=== PATIENT | male | born 1955 | race Caucasian/White ===

== ENCOUNTER 2016-10-25 11:09 | Inpatient (IN) | payer OTHER ==
[2016-10-25 15:07] VITALS: BMI 31.3
--- NOTE | 2016-10-25 17:12 | HP ---
CIWA Score - CIWA Score Nausea/Vomitin-No Nausea/No Vomiting Muscle Tremors: 4-Moderate,w/Arms Extend Anxiety: 3 Agitation: 4-Moderately Restless Paroxysmal Sweats: 3 Orientation: 0-Oriented Tacttile Disturbances: 0-None Auditory Disturbances: 0-None Visual Disturbances: 0-None Headache: 2-Mild CIWA-Ar Total Score: 16 Admission ROS BHS - HPI Chief Complaint: I am here to detox. Allergies/Adverse Reactions: Allergies Allergy/AdvReac Type Severity Reaction Status Date / Time Penicillins Allergy Severe Hives Verified 10/25/16 15:44 History of Present Illness: pt is a 61yr old male with a history of alcohol dependence seeking detox for treatment Exam Limitations: No Limitations - Ebola screening Have you traveled outside of the country in the last 21 days: No Have you had contact with anyone from an Ebola affected area: No Have you been sick,other than usual withdrawal symptoms: No Do you have a fever: No - Review of Systems Constitutional: Chills, Diaphoresis, Loss of Appetite, Night Sweats, Changes in sleep EENT: reports: Tearing Respiratory: reports: No Symptoms reported Cardiac: reports: Syncope GI: reports: Nausea, Poor Appetite, Poor Fluid Intake : reports: No Symptoms Reported Musculoskeletal: reports: Back Pain, Joint Pain Integumentary: reports: Flushing, Sweating Neuro: reports: Headache, Tingling, Tremors Endocrine: reports: Excessive Sweating, Flushing, Intolerance to Cold, Intolerance to Heat Hematology: reports: No Symptoms Reported Psychiatric: reports: No Sypmtoms Reported, Judgement Intact, Orientated x3, Agitated, Anxious Other Systems: Reviewed and Negative Patient History - Patient Medical History Hx Anemia: No Hx Asthma: No Hx Chronic Obstructive Pulmonary Disease (COPD): No Hx Cancer: Yes (ca of prostate,RADIATION [place]. DID NOT COMPLETE) Hx Cardiac Disorders: No Hx Congestive Heart Failure: No Hx Hypertension: Yes Hx Hypercholesterolemia: No Hx Pacemaker: No HX Cerebrovascular Accident: No Hx Seizures: No Hx Dementia: No Hx Diabetes: No Hx Gastrointestinal Disorders: No Hx Liver Disease: No Hx Genitourinary Disorders: No Hx Sexually Transmitted Disorders: No Hx Renal Disease (ESRD): No Hx Thyroid Disease: No Hx Human Immunodeficiency Virus (HIV): No (negative) Hx Hepatitis C: No Hx Depression: No Hx Suicide Attempt: No Hx Bipolar Disorder: No Hx Schizophrenia: No Other Medical History: liver cirrohosis - Patient Surgical History Past Surgical History: No Hx Neurologic Surgery: No Hx Cataract Extraction: No Hx Cardiac Surgery: No Hx Lung Surgery: No Hx Breast Surgery: No Hx Breast Biopsy: No Hx Abdominal Surgery: No Hx Appendectomy: No Hx Cholecystectomy: No Hx Genitourinary Surgery: No Hx Section: No Hx Orthopedic Surgery: No Anesthesia Reaction: No - PPD History Previous Implant?: Yes Documented Results: Positive w/o proof PPD to be Administered?: No - Reproductive History Patient is a Female of Child Bearing Age (11 -55 yrs old): No - Smoking Cessation Smoking history: Former smoker Have you smoked in the past 12 months: No Aproximately how many cigarettes per day: 5 If you are a former smoker, when did you quit?: at age 21 Cigars Per Day: 0 Hx Chewing Tobacco Use: No Initiated information on smoking cessation: No - Substance & Tx. History Hx Alcohol Use: Yes Substance Use Type: Alcohol - Substances Abused Alcohol-beer Route: Oral Frequency: Daily Amount used: 1 case Age of first use: 13 Date of Last Use: 10/25/16 Family Disease History - Family Disease History Family Disease History: Other: Father (alcohol,) Admission Physical Exam BHS - Vital Signs Vital Signs: Vital Signs - 24 hr 10/25/16 15:05 Temperature 95.9 F L Pulse Rate 79 Respiratory 20 Rate Blood Pressure 156/91 - Physical General Appearance: Yes: Appropriately Dressed, Moderate Distress, Obese, Tremorous, Irritable, Sweating, Anxious HEENTM: Yes: Hearing grossly Normal, Normal Voice, Nasal Congestion Respiratory: Yes: Lungs Clear, Normal Breath Sounds, No Respiratory Distress Neck: Yes: No masses,lesions,Nodules Breast: Yes: Within Normal Limits Cardiology: Yes: Regular Rhythm, Regular Rate, S1, S2 Abdominal: Yes: Normal Bowel Sounds, Non Tender, Soft Genitourinary: Yes: Within Normal Limits Back: Yes: Normal Inspection Musculoskeletal: Yes: full range of Motion, Back pain Extremities: Yes: Normal Capillary Refill, Normal Inspection, Non-Tender, Tremors Neurological: Yes: Fully Oriented, Alert, Normal Response Integumentary: Yes: Normal Color, Diaphoresis Lymphatic: Yes: Within Normal Limits - Diagnostic (1) Hypertension Current Visit: Yes Status: Chronic Qualifiers: Hypertension type: essential hypertension Qualified Code(s): I10 - Essential (primary) hypertension (2) Alcohol dependence with uncomplicated withdrawal Current Visit: Yes Status: Chronic (3) Depression Current Visit: No Status: Chronic (4) H/O prostate cancer Current Visit: No Status: Chronic (5) Cirrhosis of liver Current Visit: Yes Status: Chronic Qualifiers: Hepatic cirrhosis type: alcoholic cirrhosis Ascites presence: without ascites Qualified Code(s): K70.30 - Alcoholic cirrhosis of liver without ascites Cleared for Admission [facility] - Detox or Rehab [facility] Level of Care: Medically Managed Detox Regimen/Protocol: Librium [facility] Breath Alcohol Content Breath Alcohol Content: 0.176 Urine Drug Screen - Results Drug Screen Negative: No Urine Drug Screen Results: BZO-Benzodiazepines
[2016-10-25] MEDS ORDERED: chlordiazePOXIDE HCL 25 MG CAPSULE PO PRN (17:17)
[2016-10-25] MEDS ORDERED: P-EPHED 60MG/TRIPROLIDI 2.5MG TABLET PO PRN (17:17)
[2016-10-25] MEDS ORDERED: MAG HYDROX/AL HYDROX/SIMETH 30 ML UNIT-DOSE CUP PO PRN (17:17)
[2016-10-25] MEDS ORDERED: MAGNESIUM HYDROX 2400MG/30ML ORAL SUSPENSION 30 ML CUP PO PRN (17:17)
[2016-10-25] MEDS ORDERED: IBUPROFEN 400 MG TABLET (FP) PO PRN (17:17)
[2016-10-25] MEDS ORDERED: guaiFENesin/D-METHORPHAN HB 10 ML UNIT-DOSE CUPS PO PRN (17:17)
[2016-10-25] MEDS ORDERED: LOPERAMIDE HCL 2 MG CAPSULE PO PRN (17:17)
[2016-10-25] MEDS ORDERED: ACETAMINOPHEN 325 MG TABLET (FP) PO PRN (17:17)
[2016-10-25] MEDS ORDERED: MENTHOL/PHENOL 1 EACH UD MM PRN (17:17)
[2016-10-25] MEDS ORDERED: MAGNESIUM CITRATE 300 ML BOTTLE PO PRN (17:17)
[2016-10-25] MEDS ORDERED: hydrOXYzine PAMOATE 50 MG CAPSULE (FP) PO PRN (17:17)
[2016-10-25] MEDS ORDERED: FUROSEMIDE 40 MG TABLET (FP) PO ONE (17:45)
[2016-10-25] MEDS ORDERED: chlordiazePOXIDE HCL 25 MG CAPSULE PO ONE (17:45)
[2016-10-25] MEDS: chlordiazePOXIDE HCL 25 MG CAPSULE PO SCH ×2 (18:17→22:21)
[2016-10-25] MEDS: amLODIPine BESYLATE 10 MG TABLET (FP) PO SCH (18:18)
[2016-10-25] MEDS: ENALAPRIL MALEATE 10 MG TABLET (FP) PO SCH (22:20)
[2016-10-25] MEDS: THIAMINE HCL 100 MG TABLET (FP) PO SCH (22:20)
[2016-10-25] MEDS: FLUOCINONIDE 0.05% TOP OINT (15 GM TUBE) TP SCH (22:21)
[2016-10-25] MEDS: diphenhydrAMINE HCL 50 MG CAPSULE PO PRN (22:21)
[2016-10-25 23:53] LABS: URINE APPEARANCE CLEAR; URINE BILIRUBIN NEGATIVE (NEGATIVE); URINE COLOR LTYELLOW; URINE GLUCOSE (UA) NEGATIVE (NEGATIVE); URINE KETONE NEGATIVE (NEGATIVE); URINE LEUK ESTERASE NEGATIVE (NEGATIVE); URINE NITRITE NEGATIVE (NEGATIVE); URINE UROBILINOGEN NEGATIVE E.U./dl (0.2-1.0)
[2016-10-26 00:11] LABS: URINE BLOOD 1+ (NEGATIVE); URINE PROTEIN 1+ (NEGATIVE)
[2016-10-26 00:29] LABS: URINE HYALINE CAST 1 /lpf; URINE MUCUS RARE; URINE RBC <1 /hpf (0-3); URINE WBC <1 /hpf (3-5)
[2016-10-26] MEDS: FLUOCINONIDE 0.05% TOP OINT (15 GM TUBE) TP SCH ×3 (05:34→22:09)
[2016-10-26] MEDS: chlordiazePOXIDE HCL 25 MG CAPSULE PO SCH ×4 (05:34→22:09)
[2016-10-26 09:58] LABS: MCH 29.7 pg (25.7-33.7); MCHC 32.9 g/dl (32.0-35.9); MEAN CELL VOLUME 90.3 fl (80-96); MEAN PLT VOLUME 8.6 fl (7.5-11.1); PLATELET COUNT 59 K/MM3 (134-434); RDW 16.3 % (11.9-15.9); WHITE BLOOD COUNT 2.8 K/mm3 (4.0-10.0)
[2016-10-26] MEDS: ENALAPRIL MALEATE 10 MG TABLET (FP) PO SCH ×2 (10:10→22:09)
[2016-10-26] MEDS: amLODIPine BESYLATE 10 MG TABLET (FP) PO SCH (10:11)
[2016-10-26] MEDS: PRENATAL VITAMINS W/ FOLIC ACID TABLET (FP) PO SCH (10:11)
[2016-10-26 10:40] LABS: ALBUMIN 3.8 g/dl (3.4-5.0); ALK PHOS 89 U/L (45-117); ANION GAP 13 (8-16); BILIRUBIN,TOTAL 0.6 mg/dL (0.2-1.0); CALCIUM 8.3 mg/dL (8.5-10.1); CO2 26 mmol/L (21-32); COCKROFT - GAULT 122.84; CREATININE 0.8 mg/dL (0.7-1.3); GLUCOSE,RANDOM 119 mg/dL (74-106); SGOT/AST 85 U/L (15-37); SGPT/ALT 81 U/L (12-78)
--- NOTE | 2016-10-26 12:20 | EKG ---
Test Reason : Blood Pressure : / mmHG Vent. Rate : 080 BPM Atrial Rate : 080 BPM P-R Int : 144 ms QRS Dur : 094 ms QT Int : 388 ms P-R-T Axes : 035 -10 070 degrees QTc Int : 447 ms NORMAL SINUS RHYTHM VOLTAGE CRITERIA FOR LEFT VENTRICULAR HYPERTROPHY ABNORMAL ECG NO PREVIOUS ECGS AVAILABLE Confirmed by MD LIZ, ADELSO ([id number]) on 10/26/2016 12:20:20 PM Referred By: Confirmed By:ADELSO HILL MD
--- NOTE | 2016-10-26 14:31 | CONSULT ---
[facility] Psychiatric Consult - Data Date of interview: 10/26/16 Admission source: [facility] Identifying data: Readmission to [facility] for this 61 y/o male seeking detox treatment for alcohol dependence.Patient is single,a father of two ,domiciled,unemployed and supported on SSI benefits. Substance Abuse History: - Smoking Cessation. Smoking history: Former smoker. Have you smoked in the past 12 months: No. Aproximately how many cigarettes per day: 5. If you are a former smoker, when did you quit?: at age 21. Cigars Per Day: 0. Hx Chewing Tobacco Use: No. Initiated information on smoking cessation: No. - Substance & Tx. History. Hx Alcohol Use: Yes. Substance Use Type: Alcohol. - Substances Abused. Alcohol-beer. Route: Oral. Frequency : Daily. Amount used: 1 case. Age of first use: 13. Date of Last Use: . Confirmed by patient. Medical History: Cancer of prostate (radiation therapy),psoriasis,liver cirrhosis and hypertension. Psychiatric History: Patient denies. Physical/Sexual Abuse/Trauma History: Patient denies. Additional Comment: Urine Drug Screen Results: BZO-Benzodiazepines.Noted. Mental Status Exam - Mental Status Exam Alert and Oriented to: Time, Place, Person Cognitive Function: Good Patient Appearance: Unkempt, Disheveled Mood: Nervous, Withdrawn, Anxious Affect: Mood Congruent Patient Behavior: Fatigued, Cooperative Speech Pattern: Clear Voice Loudness: Normal Thought Process: Goal Oriented Thought Disorder: Not Present Hallucinations: Denies Suicidal Ideation: Denies Homicidal Ideation: Denies Insight/Judgement: Poor Sleep: Well Appetite: Good Muscle strength/Tone: Normal Gait/Station: Normal Psychiatric Findings - Problem List ([place] 1, 2,3) (1) Alcohol dependence with uncomplicated withdrawal Current Visit: Yes Status: Acute (2) Cirrhosis of liver Current Visit: Yes Status: Chronic Qualifiers: Hepatic cirrhosis type: alcoholic cirrhosis Ascites presence: without ascites Qualified Code(s): K70.30 - Alcoholic cirrhosis of liver without ascites (3) Hypertension Current Visit: Yes Status: Chronic Qualifiers: Hypertension type: essential hypertension Qualified Code(s): I10 - Essential (primary) hypertension (4) Plaque psoriasis Current Visit: Yes Status: Chronic (5) H/O prostate cancer Current Visit: No Status: Chronic - Initial Treatment Plan Initial Treatment Plan: Psychoeducation.Detoxification.Observation.
--- NOTE | 2016-10-26 15:18 | PN ---
[facility] CIWA - CIWA Score Nausea/Vomitin-Mild Nausea/No Vomiting Muscle Tremors: 4-Moderate,w/Arms Extend Anxiety: 3 Agitation: 2 Paroxysmal Sweats: 3 Orientation: 0-Oriented Tacttile Disturbances: 2-Mild Itch/Numbness/Burn Auditory Disturbances: 2-Mild Harshness/Frighten Visual Disturbances: 2-Mild Sensitivity Headache: 0-None Present CIWA-Ar Total Score: 19 S Progress Note (SOAP) Subjective: Diarrhea, Cold Sensations, Tremors, Stomach cramping, Body aches, Sweating. Objective: PT. A & OX 3, OBSERVED AMBULATING ON UNIT. PT. DENIES CHEST PAIN. 10/26/16 15:15 Vital Signs Temperature 97.6 F 10/26/16 13:02 Pulse Rate 94 H 10/26/16 13:02 Respiratory Rate 20 10/26/16 13:02 Blood Pressure 126/83 10/26/16 13:02 O2 Sat by Pulse Oximetry (%) Laboratory Last Values WBC 2.8 K/mm3 (4.0-10.0) L D 10/26/16 06:00 RBC 4.47 M/mm3 (4.00-5.60) 10/26/16 06:00 Hgb 13.3 GM/dL (11.7-16.9) 10/26/16 06:00 Hct 40.3 % (35.4-49) 10/26/16 06:00 MCV 90.3 fl (80-96) 10/26/16 06:00 MCHC 32.9 g/dl (32.0-35.9) 10/26/16 06:00 RDW 16.3 % (11.9-15.9) H 10/26/16 06:00 Plt Count 59 K/MM3 (134-434) L 10/26/16 06:00 MPV 8.6 fl (7.5-11.1) 10/26/16 06:00 Sodium 143 mmol/L (136-145) 10/26/16 06:00 Potassium 4.2 mmol/L (3.5-5.1) 10/26/16 06:00 Chloride 104 mmol/L (98-107) 10/26/16 06:00 Carbon Dioxide 26 mmol/L (21-32) 10/26/16 06:00 Anion Gap 13 (8-16) 10/26/16 06:00 BUN 8 mg/dL (7-18) D 10/26/16 06:00 Creatinine 0.8 mg/dL (0.7-1.3) 10/26/16 06:00 Creat Clearance w eGFR > 60 (>60) 10/26/16 06:00 Random Glucose 119 mg/dL (74-106) H D 10/26/16 06:00 Calcium 8.3 mg/dL (8.5-10.1) L 10/26/16 06:00 Total Bilirubin 0.6 mg/dL (0.2-1.0) D 10/26/16 06:00 AST 85 U/L (15-37) H D 10/26/16 06:00 ALT 81 U/L (12-78) H D 10/26/16 06:00 Alkaline Phosphatase 89 U/L (45-117) D 10/26/16 06:00 Total Protein 8.0 g/dl (6.4-8.2) 10/26/16 06:00 Albumin 3.8 g/dl (3.4-5.0) 10/26/16 06:00 Urine Color Ltyellow 10/25/16 23:40 Urine Appearance Clear 10/25/16 23:40 Urine pH 5.0 (5.0-8.0) 10/25/16 23:40 Ur Specific [place] 1.025 (1.005-1.025) 10/25/16 23:40 Urine Protein 1+ (NEGATIVE) H 10/25/16 23:40 Urine Glucose (UA) Negative (NEGATIVE) 10/25/16 23:40 Urine Ketones Negative (NEGATIVE) 10/25/16 23:40 Urine Blood 1+ (NEGATIVE) H 10/25/16 23:40 Urine Nitrite Negative (NEGATIVE) 10/25/16 23:40 Urine Bilirubin Negative (NEGATIVE) 10/25/16 23:40 Urine Urobilinogen Negative E.U./dl (0.2-1.0) 10/25/16 23:40 Ur Leukocyte Esterase Negative (NEGATIVE) 10/25/16 23:40 Urine RBC <1 /hpf (0-3) 10/25/16 23:40 Urine WBC <1 /hpf (3-5) 10/25/16 23:40 Hyaline Casts 1 /lpf 10/25/16 23:40 Urine Mucus Rare 10/25/16 23:40 RPR Titer Nonreactive (NONREACTIVE) 10/26/16 06:00 LABS NOTED. 10/26/16 15:18 Assessment: 10/26/16 15:17 WITHDRAWAL SYMPTOMS. Plan: CONTINUE DETOX. REPEAT UA FOR ABNORMAL ADMISSION UA VALUES. ADVISED PATIENT TO FOLLOW-UP WITH INTEGRATION DIRECTOR AFTER DISCHARGE FROM DETOX FOR GENERAL MEDICAL ASSESSMENT AND FOR ABNORMAL ADMISSION LIVER ENZYME VALUES.
[2016-10-26] MEDS: THIAMINE HCL 100 MG TABLET (FP) PO SCH (22:09)
[2016-10-26] MEDS: diphenhydrAMINE HCL 50 MG CAPSULE PO PRN (22:09)
[2016-10-27] MEDS: FLUOCINONIDE 0.05% TOP OINT (15 GM TUBE) TP SCH ×3 (05:46→22:03)
[2016-10-27] MEDS: chlordiazePOXIDE HCL 25 MG CAPSULE PO SCH ×2 (05:46→10:02)
[2016-10-27] MEDS: ENALAPRIL MALEATE 10 MG TABLET (FP) PO SCH ×2 (10:02→22:03)
[2016-10-27] MEDS: amLODIPine BESYLATE 10 MG TABLET (FP) PO SCH (10:02)
[2016-10-27] MEDS: PRENATAL VITAMINS W/ FOLIC ACID TABLET (FP) PO SCH (10:03)
--- NOTE | 2016-10-27 14:34 | PN ---
S CIWA - CIWA Score Nausea/Vomitin Muscle Tremors: 4-Moderate,w/Arms Extend Anxiety: 4-Mod. Anxious/Guarded Agitation: 2 Paroxysmal Sweats: No Perspiration Orientation: 0-Oriented Tacttile Disturbances: 1-Very Mild Itch/Numbness Auditory Disturbances: 0-None Visual Disturbances: 0-None Headache: 1-Very Mild CIWA-Ar Total Score: 14 BHS Progress Note (SOAP) Subjective: Tremor, anxious, sweating, interrupted sleep Objective: 10/27/16 14:31 Last Vital Signs Temp Pulse Resp BP Pulse Ox 97.6 F 93 H 18 104/70 10/27/16 13:08 10/27/16 13:08 10/27/16 13:08 10/27/16 13:08 Laboratory Tests 10/25/16 10/26/16 10/26/16 23:40 06:00 06:00 WBC 2.8 L D RBC 4.47 Hgb 13.3 Hct 40.3 MCV 90.3 MCHC 32.9 RDW 16.3 H Plt Count 59 L MPV 8.6 Sodium 143 Potassium 4.2 Chloride 104 Carbon Dioxide 26 Anion Gap 13 BUN 8 D Creatinine 0.8 Creat Clearance w eGFR > 60 Random Glucose 119 H D Calcium 8.3 L Total Bilirubin 0.6 D AST 85 H D ALT 81 H D Alkaline Phosphatase 89 D Total Protein 8.0 Albumin 3.8 Urine Color Ltyellow Urine Appearance Clear Urine pH 5.0 Ur Specific [place] 1.025 Urine Protein 1+ H Urine Glucose (UA) Negative Urine Ketones Negative Urine Blood 1+ H Urine Nitrite Negative Urine Bilirubin Negative Urine Urobilinogen Negative Ur Leukocyte Esterase Negative Urine RBC <1 Urine WBC <1 Hyaline Casts 1 Urine Mucus Rare RPR Titer 10/26/16 06:00 WBC RBC Hgb Hct MCV MCHC RDW Plt Count MPV Sodium Potassium Chloride Carbon Dioxide Anion Gap BUN Creatinine Creat Clearance w eGFR Random Glucose Calcium Total Bilirubin AST ALT Alkaline Phosphatase Total Protein Albumin Urine Color Urine Appearance Urine pH Ur Specific [place] Urine Protein Urine Glucose (UA) Urine Ketones Urine Blood Urine Nitrite Urine Bilirubin Urine Urobilinogen Ur Leukocyte Esterase Urine RBC Urine WBC Hyaline Casts Urine Mucus RPR Titer Nonreactive Labs noted: UA 1+ protein and 1+ blood Assessment: 10/27/16 14:34 Withdrawal symptoms Noted with proteinuria and microscopic hematuria Plan: Continue detox Encouraged to drink lots of water Proteinura, microscopic hematuria: drink lots of water, repeat UA
[2016-10-27] MEDS: chlordiazePOXIDE 5 MG CAPSULE PO SCH ×2 (17:24→22:03)
[2016-10-27] MEDS: THIAMINE HCL 100 MG TABLET (FP) PO SCH (22:03)
[2016-10-27] MEDS: diphenhydrAMINE HCL 50 MG CAPSULE PO PRN (22:03)
[2016-10-28] MEDS: chlordiazePOXIDE 5 MG CAPSULE PO SCH ×2 (05:34→10:03)
[2016-10-28] MEDS: FLUOCINONIDE 0.05% TOP OINT (15 GM TUBE) TP SCH ×3 (05:35→22:10)
[2016-10-28] MEDS: amLODIPine BESYLATE 10 MG TABLET (FP) PO SCH (10:03)
[2016-10-28] MEDS: PRENATAL VITAMINS W/ FOLIC ACID TABLET (FP) PO SCH (10:03)
[2016-10-28] MEDS: ENALAPRIL MALEATE 10 MG TABLET (FP) PO SCH ×2 (10:03→22:10)
--- NOTE | 2016-10-28 10:58 | PN ---
BHS Progress Note (SOAP) Subjective: Sweating,interrupted sleep,restless Objective: 10/28/16 10:57 Vital Signs - 8 hr 10/28/16 10/28/16 10/28/16 03:37 06:10 09:32 Temperature 98.1 F 97.0 F L Pulse Rate 71 96 H Respiratory 18 18 20 Rate Blood Pressure 140/89 129/87 Laboratory Tests 10/25/16 10/26/16 10/26/16 23:40 06:00 06:00 WBC 2.8 L D RBC 4.47 Hgb 13.3 Hct 40.3 MCV 90.3 MCHC 32.9 RDW 16.3 H Plt Count 59 L MPV 8.6 Sodium 143 Potassium 4.2 Chloride 104 Carbon Dioxide 26 Anion Gap 13 BUN 8 D Creatinine 0.8 Creat Clearance w eGFR > 60 Random Glucose 119 H D Calcium 8.3 L Total Bilirubin 0.6 D AST 85 H D ALT 81 H D Alkaline Phosphatase 89 D Total Protein 8.0 Albumin 3.8 Urine Color Ltyellow Urine Appearance Clear Urine pH 5.0 Ur Specific [place] 1.025 Urine Protein 1+ H Urine Glucose (UA) Negative Urine Ketones Negative Urine Blood 1+ H Urine Nitrite Negative Urine Bilirubin Negative Urine Urobilinogen Negative Ur Leukocyte Esterase Negative Urine RBC <1 Urine WBC <1 Hyaline Casts 1 Urine Mucus Rare RPR Titer 10/26/16 06:00 WBC RBC Hgb Hct MCV MCHC RDW Plt Count MPV Sodium Potassium Chloride Carbon Dioxide Anion Gap BUN Creatinine Creat Clearance w eGFR Random Glucose Calcium Total Bilirubin AST ALT Alkaline Phosphatase Total Protein Albumin Urine Color Urine Appearance Urine pH Ur Specific [place] Urine Protein Urine Glucose (UA) Urine Ketones Urine Blood Urine Nitrite Urine Bilirubin Urine Urobilinogen Ur Leukocyte Esterase Urine RBC Urine WBC Hyaline Casts Urine Mucus RPR Titer Nonreactive labs noted Assessment: 10/28/16 10:57 Withdrawal sx. Plan: Continue detox
[2016-10-28] MEDS ORDERED: chlordiazePOXIDE HCL 25 MG CAPSULE PO ONE (14:30)
[2016-10-28 15:06] LABS: URINE APPEARANCE CLEAR; URINE BILIRUBIN NEGATIVE (NEGATIVE); URINE BLOOD NEGATIVE (NEGATIVE); URINE COLOR AMBER; URINE GLUCOSE (UA) NEGATIVE (NEGATIVE); URINE KETONE NEGATIVE (NEGATIVE); URINE LEUK ESTERASE NEGATIVE (NEGATIVE); URINE NITRITE NEGATIVE (NEGATIVE); URINE PROTEIN NEGATIVE (NEGATIVE); URINE UROBILINOGEN 4.0 E.U/dl E.U./dl (0.2-1.0)
[2016-10-28] MEDS: chlordiazePOXIDE HCL 10 MG CAPSULE PO SCH ×2 (17:08→22:10)
[2016-10-28] MEDS: THIAMINE HCL 100 MG TABLET (FP) PO SCH (22:36)
[2016-10-29] MEDS: chlordiazePOXIDE HCL 10 MG CAPSULE PO SCH (05:53)
[2016-10-29 06:16] VITALS: BP 134/91; PULSE 75; TEMP 96.4
[2016-10-29] MEDS: FLUOCINONIDE 0.05% TOP OINT (15 GM TUBE) TP SCH (08:08)
[2016-10-29] MEDS: ENALAPRIL MALEATE 10 MG TABLET (FP) PO SCH (09:03)
[2016-10-29] MEDS: PRENATAL VITAMINS W/ FOLIC ACID TABLET (FP) PO SCH (09:03)
[2016-10-29] MEDS: amLODIPine BESYLATE 10 MG TABLET (FP) PO SCH (09:03)
--- NOTE | 2016-10-29 11:13 | DS ---
[facility] Detox Discharge Summary Admission Date: 10/25/16 Discharge Date: 10/29/16 - History Present History: Alcohol Dependence Additional Comments: DETOX COMPLETED. ALERT O X 3. NAD. Pertinent Past History: PROSTATE CA HTN LIVER CIRRHOSIS PSORIASIS - Physical Exam Results Vital Signs: Vital Signs Temperature 96.4 F L 10/29/16 06:15 Pulse Rate 75 10/29/16 06:15 Respiratory Rate 18 10/29/16 06:15 Blood Pressure 134/91 10/29/16 06:15 O2 Sat by Pulse Oximetry (%) Pertinent Admission Physical Exam Findings: WITHDRAWAL SX - Treatment Hospital Course: Detox Protocol Followed, Detoxed Safely, Responded well, Discharged Condition Good - Medication Discharge Medications: Ambulatory Orders Amlodipine Besylate [Norvasc -] 10 mg PO DAILY 10/25/16 Clobetasol Propionate [Temovate] 30 gm TP DAILY 10/25/16 Enalapril Maleate [Vasotec -] 10 mg PO BID 10/25/16 Folic Acid - 1 mg PO DAILY 10/25/16 Multivitamins [Tab-A-Vit -] 1 tab PO DAILY 10/25/16 Thiamine HCl [Vitamin B1] 100 mg PO DAILY 10/25/16 - Diagnosis (1) Alcohol dependence with uncomplicated withdrawal Status: Acute (2) Cirrhosis of liver Status: Chronic Qualifiers: Hepatic cirrhosis type: alcoholic cirrhosis Ascites presence: without ascites Qualified Code(s): K70.30 - Alcoholic cirrhosis of liver without ascites (3) H/O prostate cancer Status: Chronic (4) Hypertension Status: Chronic Qualifiers: Hypertension type: essential hypertension Qualified Code(s): I10 - Essential (primary) hypertension (5) Plaque psoriasis Status: Chronic - AMA Did Patient Leave Against Medical Advice: No
== END 2016-10-29 09:13 | disposition home or self-care (01) | DRG 775 ==
LOC: YASAS 11:09 → Y3N 16:20
PROVIDERS: ADMIT Internal Medicine; ATTEND Internal Medicine
PROC: HZ2ZZZZ Detoxification Services for Substance Abuse Treatment (ICD-10-PCS; principal; 2016-10-25)
DX: F10.230 Alcohol dependence with withdrawal, uncomplicated (principal); K70.30 Alcoholic cirrhosis of liver without ascites; Z85.46 Personal history of malignant neoplasm of prostate; I10 Essential (primary) hypertension; L40.0 Psoriasis vulgaris; R80.9 Proteinuria, unspecified; R31.29 Other microscopic hematuria; Z87.891 Personal history of nicotine dependence
CPT/HCPCS: 36415; 80053; 81003; 81015; 85027; 86593; 93005; 93010

== ENCOUNTER 2021-09-27 17:41 | Inpatient (IN) | payer OTHER ==
[2021-09-27] MEDS ORDERED: ACETAMINOPHEN 325 MG TABLET (FP) PO PRN ×2 (20:00)
[2021-09-27] MEDS ORDERED: ONDANSETRON *ODT* 4 MG TABLET SL PRN (20:00)
[2021-09-27] MEDS ORDERED: IBUPROFEN 400 MG TABLET (FP) PO PRN (20:00)
[2021-09-27] MEDS ORDERED: MAG HYDROX/AL HYDROX/SIMETH 30 ML UNIT-DOSE CUP PO PRN (20:00)
[2021-09-27] MEDS ORDERED: BISMUTH SUBSALICYLATE 524 MG/30 ML PO PRN (20:00)
[2021-09-27] MEDS ORDERED: LORazepam 1 MG TABLET PO PRN (20:00)
[2021-09-27] MEDS ORDERED: MAGNESIUM HYDROX 2400MG/30ML ORAL SUSPENSION 30 ML CUP PO PRN (20:00)
[2021-09-27] MEDS ORDERED: DICYCLOMINE HCL 10 MG CAPSULE PO PRN (20:00)
[2021-09-27] MEDS ORDERED: MAGNESIUM CITRATE 300 ML BOTTLE PO PRN (20:00)
[2021-09-27] MEDS ORDERED: BENZOCAINE/MENTHOL (CHLORASEPTIC ) LOZENGE MM PRN (20:00)
[2021-09-27] MEDS ORDERED: METHOCARBAMOL 500 MG TABLET PO PRN (20:00)
[2021-09-27] MEDS ORDERED: LOPERAMIDE HCL 2 MG CAPSULE PO PRN (20:00)
[2021-09-28 00:08] VITALS: BMI 33.6
[2021-09-28] MEDS: LORazepam 2 MG TABLET PO SCH ×5 (00:45→22:15)
[2021-09-28] MEDS: THIAMINE HCL 100 MG TABLET (FP) PO SCH ×2 (00:46→22:15)
[2021-09-28] MEDS: MELATONIN 5 MG TABLETS PO SCH ×2 (00:46→22:15)
[2021-09-28 10:27] LABS: HEMATOCRIT 41.6 % (35.4-49); HEMOGLOBIN 13.7 GM/dL (11.7-16.9); MCH 30.7 pg (25.7-33.7); MEAN CELL VOLUME 93.2 fl (80-96); MEAN PLT VOLUME 8.1 fl (7.5-11.1); PLATELET COUNT 44 10^3/uL (134-434); RBC 4.47 M/mm3 (4.00-5.60); RDW 15.6 % (11.9-15.9)
[2021-09-28 10:37] LABS: BLOOD UREA NITROGEN 11.5 mg/dL (7-18); CALCIUM 8.9 mg/dL (8.5-10.1)
[2021-09-28 10:38] LABS: ALBUMIN 3.8 g/dl (3.4-5.0)
[2021-09-28] MEDS: ENALAPRIL MALEATE 10 MG TABLET PO SCH ×2 (10:39→22:15)
[2021-09-28] MEDS: amLODIPine BESYLATE 10 MG TABLET (FP) PO SCH (10:39)
[2021-09-28] MEDS: PRENATAL VITAMINS W/ FOLIC ACID TABLET (FP) PO SCH (10:40)
[2021-09-28] MEDS: FLUOCINONIDE 0.05% CREAM (60 GM TUBE) TP SCH ×2 (10:40→22:14)
[2021-09-28 10:41] LABS: CREATININE 0.8 mg/dL (0.55-1.3)
[2021-09-28 10:42] LABS: BILIRUBIN,TOTAL 1.4 mg/dL (0.2-1); TOT PROT 7.6 g/dl (6.4-8.2)
[2021-09-28 10:49] LABS: WHITE BLOOD COUNT 1.8 K/mm3 (4.0-10.0)
[2021-09-29] MEDS: LORazepam 1 MG TABLET PO SCH ×4 (06:52→23:00)
[2021-09-29] MEDS: FLUOCINONIDE 0.05% CREAM (60 GM TUBE) TP SCH ×2 (10:30→23:00)
[2021-09-29] MEDS: PRENATAL VITAMINS W/ FOLIC ACID TABLET (FP) PO SCH (10:31)
[2021-09-29] MEDS: amLODIPine BESYLATE 10 MG TABLET (FP) PO SCH (10:31)
[2021-09-29] MEDS: ENALAPRIL MALEATE 10 MG TABLET PO SCH ×2 (10:31→23:00)
[2021-09-29 11:55] LABS: INR 1.2 (0.83-1.09); PROTHROMBIN TIME (PATIENT) 13.8 SEC (9.7-13.0)
[2021-09-29 11:57] LABS: HEMATOCRIT 41.1 % (35.4-49); HEMOGLOBIN 13.5 GM/dL (11.7-16.9); MCH 30.7 pg (25.7-33.7); MEAN PLT VOLUME 8.5 fl (7.5-11.1); PLATELET COUNT 41 10^3/uL (134-434); RBC 4.42 M/mm3 (4.00-5.60); RDW 15.7 % (11.9-15.9)
[2021-09-29 12:03] LABS: WHITE BLOOD COUNT 1.6 K/mm3 (4.0-10.0)
[2021-09-29 12:15] LABS: ALBUMIN 3.4 g/dl (3.4-5.0); BLOOD UREA NITROGEN 12.4 mg/dL (7-18); CALCIUM 8.9 mg/dL (8.5-10.1)
[2021-09-29 12:16] LABS: CREATININE 0.9 mg/dL (0.55-1.3)
[2021-09-29 12:18] LABS: BILIRUBIN,TOTAL 1.3 mg/dL (0.2-1); TOT PROT 6.9 g/dl (6.4-8.2)
[2021-09-29 12:30] LABS: ANISOCYTOSIS 1+; MACROCYTOSIS 1+; PLATELET ESTIMATE DECREASED
[2021-09-29 19:07] LABS: SARS-CoV-2 NAA Not Detected (Not Detected)
[2021-09-29] MEDS: MELATONIN 5 MG TABLETS PO SCH (23:00)
[2021-09-29] MEDS: THIAMINE HCL 100 MG TABLET (FP) PO SCH (23:00)
[2021-09-29 23:07] LABS: SARS-CoV-2 NAA Not Detected (Not Detected)
[2021-09-30] MEDS ORDERED: LORazepam 0.5 MG TABLET PO PRN
[2021-09-30] MEDS: LORazepam 0.5 MG TABLET PO SCH ×4 (06:00→23:00)
[2021-09-30] MEDS: FLUOCINONIDE 0.05% CREAM (60 GM TUBE) TP SCH ×2 (10:06→23:01)
[2021-09-30] MEDS: PRENATAL VITAMINS W/ FOLIC ACID TABLET (FP) PO SCH (10:06)
[2021-09-30] MEDS: ENALAPRIL MALEATE 10 MG TABLET PO SCH ×2 (10:07→23:02)
[2021-09-30] MEDS: amLODIPine BESYLATE 10 MG TABLET (FP) PO SCH (10:07)
[2021-09-30] MEDS ORDERED: LACTULOSE 20 GM/30 ML UDC (FOR ORAL USE ONLY) PO ONE (14:50)
[2021-09-30] MEDS: LACTULOSE 20 GM/30 ML UDC (FOR ORAL USE ONLY) PO SCH ×2 (17:46→23:00)
[2021-09-30] MEDS: MELATONIN 5 MG TABLETS PO SCH (23:01)
[2021-09-30] MEDS: THIAMINE HCL 100 MG TABLET (FP) PO SCH (23:02)
[2021-10-01] MEDS ORDERED: LORazepam 0.5 MG TABLET PO ONE (05:00)
[2021-10-01 08:43] VITALS: BP 128/96; PULSE 91; TEMP 97.7
== END 2021-10-01 09:16 | disposition home or self-care (01) | DRG 897 ==
LOC: YASAS 17:41 → Y3N 20:53
PROVIDERS: ADMIT Allergy & Immunology; ATTEND Allergy & Immunology
PROC: HZ2ZZZZ Detoxification Services for Substance Abuse Treatment (ICD-10-PCS; principal; 2021-09-27)
DX: F10.230 Alcohol dependence with withdrawal, uncomplicated (principal); D61.818 Other pancytopenia; F10.24 Alcohol dependence with alcohol-induced mood disorder; I10 Essential (primary) hypertension; K74.60 Unspecified cirrhosis of liver; L40.0 Psoriasis vulgaris; R79.89 Other specified abnormal findings of blood chemistry; Z85.46 Personal history of malignant neoplasm of prostate; Z87.891 Personal history of nicotine dependence; Z88.0 Allergy status to penicillin; Z56.0 Unemployment, unspecified; Z59.01 Sheltered homelessness
CPT/HCPCS: 36415; 80053; 82140; 85025; 85027; 85610; 86780; 93005; 93010; C9803-CS; U0003; U0005